=== PATIENT | male | born 1965 | race Caucasian/White ===

== ENCOUNTER 2016-11-20 21:43 | Emergency (ER) | payer MEDICAID, OTHER ==
[~2016-11-20] VITALS: Ht 177.8 cm; Wt 90.7 kg
[~2016-11-20 21:43] MED LIST: ATOR10TA PO; LISI10TA59 PO; METO25TA20 PO
[2016-11-20] MEDS ORDERED: ACETAMINOPHEN ES 500 MG TABLET ONE (23:03)
[2016-11-20] MEDS ORDERED: ACETAMINOPHEN 325 MG TABLET PO ONE (23:30)
[2016-11-21 00:05] VITALS: BP 123/70
== END 2016-11-21 00:07 | disposition home or self-care (01) ==
LOC: ER 21:48
DX: M23.91 Unspecified internal derangement of right knee (principal); F10.129 Alcohol abuse with intoxication, unspecified; F10.10 Alcohol abuse, uncomplicated; G20 Parkinson's disease; Z88.5 Allergy status to narcotic agent; I10 Essential (primary) hypertension; W19.XXXA Unspecified fall, initial encounter; Y92.89 Other specified places as the place of occurrence of the external cause; Y93.89 Activity, other specified; Y99.8 Other external cause status
CPT/HCPCS: 29505; 51702; 82962; 99283; A4606; Z7610

== ENCOUNTER 2021-02-26 22:09 | Emergency (ER) | payer OTHER ==
[~2021-02-26] VITALS: Ht 170.2 cm; Wt 79.4 kg
[~2021-02-26 22:09] MED LIST changes: +LISI10TA30 PO; -LISI10TA59 PO
--- NOTE | 2021-02-26 22:12 | NUR ---
PT BIBRA C/O CP WHILE WALKING. PER EMS, PT WAS GIVEN ASA 324MG. PT AAOX4 BREATHING EVENLY AND UNLABORED. PT ATTACHED TO MONITOR AND POX. SKIN IS WARM, DRY, AND INTACT. PT GIVEN BLANKET AND CALL LIGHT WITHIN REACH.
--- NOTE | 2021-02-26 22:36 | NUR ---
BLOOD OBTAINED AND SENT TO LAB
--- NOTE | 2021-02-26 22:40 | NUR ---
PT PLACED ON 2L O2 VIA NC FOR COMFORT
[2021-02-26 22:42] LABS: BASOPHILS % (AUTO) 0.7 % (0.0-2.0); EOSINOPHILS % (AUTO) 2.8 % (0.0-6.0); HEMATOCRIT 37 % (39-51); HEMOGLOBIN 12.2 g/dL (13.5-17.5); LYMPHOCYTES # (AUTO) 1.5 /CMM (0.8-4.8); LYMPHOCYTES % (AUTO) 23.4 % (20.0-44.0); MEAN CORPUSCULAR HGB CONC 33 g/dl (31.0-36.0); MEAN CORPUSCULAR VOLUME 97 fL (80-96); MONOCYTES # (AUTO) 0.7 /CMM (0.1-1.30); MONOCYTES % (AUTO) 11.2 % (2.0-12.0); NEUTROPHILS # (AUTO) 3.9 /CMM (1.8-8.9); NEUTROPHILS % (AUTO) 61.9 % (43.0-81.0); PLATELET COUNT (AUTO) 142 /CMM (150-450); RED BLOOD CELL COUNT(AUTO) 3.78 MIL/uL (4.5-6.0); WHITE BLOOD COUNT (AUTO) 6.4 K/uL (4.3-11.0)
--- NOTE | 2021-02-26 22:51 | NUR ---
COVID SWAB SENT TO LAB
[2021-02-26] MEDS ORDERED: ASPIRIN 325 MG TABLET PO ONE (23:00)
[2021-02-26 23:04] LABS: CALCIUM, SERUM 8.6 mg/dL (8.5-10.1); CARBON DIOXIDE 25 mmol/L (21-32); CHLORIDE 101 mmol/L (98-107); CREATININE 1.4 mg/dL (0.6-1.3); GLUCOSE 107 mg/dL (74-106); POTASSIUM 2.9 mmol/L (3.5-5.1); SODIUM SERUM 139 mmol/L (136-145); UREA NITROGEN, BLOOD 25 mg/dL (7-18)
[2021-02-26 23:16] LABS: ALANINE AMINOTRANSFERASE 19 U/L (12-78); ALBUMIN 3.8 g/dL (3.4-5.0); ALKALINE PHOSPHATASE 111 U/L (46-116); ASPARTATE AMINOTRANSFERASE 27 U/L (15-37); BILIRUBIN,DIRECT 0.2 mg/dL (0.0-0.2); BILIRUBIN,TOTAL 0.3 mg/dL (0.2-1.0); NT-PRO BNP 1360 pg/mL (0-125); TOTAL PROTEIN, SERUM 8.1 g/dL (6.4-8.2)
[2021-02-26] MEDS ORDERED: POTASSIUM CHLORIDE 20 MEQ TAB.PRT.SR PO ONE ×3 (23:30→23:37)
--- NOTE | 2021-02-27 03:15 | NUR ---
PT ACCEPTED TO [facility] BY DR HUTCHISON. ROOM 443B. # FOR REPORT [phone].
--- NOTE | 2021-02-27 03:50 | NUR ---
gave report to MARIANA Davila for torrie at [facility]
--- NOTE | 2021-02-27 04:38 | NUR ---
CALL FROM [facility]. NEW BED 620-B. # FOR REPORT [phone]
--- NOTE | 2021-02-27 04:45 | NUR ---
Gave report to MARIANA Cook for torrie at [facility]
[2021-02-27 05:47] VITALS: BP 130/94
--- NOTE | 2021-02-27 07:05 | NUR ---
gave report to MARIANA Flaherty for torrie
--- NOTE | 2021-02-27 07:53 | NUR ---
REPORT GIVEN TO EMT.
--- NOTE | 2021-02-27 08:03 | NUR ---
patient transferred to [facility] in stable condition. AA/OX4, DENIES ANY PAIN AT THIS TIME. DOCUMENTS AND IMAGES GIVEN TO SQUEAK RATTLE AND LEAK REPAIRER.
== END 2021-02-27 08:04 | disposition short-term general hospital (02) ==
LOC: ER 22:09 → ICU 02-27 00:41 → UNDOADMIN 02-27 00:41 → ER 02-27 08:04
DX: R07.9 Chest pain, unspecified (principal); F10.129 Alcohol abuse with intoxication, unspecified; Y90.8 Blood alcohol level of 240 mg/100 ml or more; I11.0 Hypertensive heart disease with heart failure; I50.9 Heart failure, unspecified; Z95.1 Presence of aortocoronary bypass graft; Z79.899 Other long term (current) drug therapy; R94.31 Abnormal electrocardiogram [ECG] [EKG]; Z20.822 Contact with and (suspected) exposure to COVID-19
CPT/HCPCS: 36415; 71045; 80048; 80076; 80320; 83880; 84484; 85025; 85730; 87081; 87426; 93005; 99285; C9803; G0480

== ENCOUNTER 2021-03-08 22:46 | Emergency (ER) | payer OTHER ==
[~2021-03-08] VITALS: Ht 170.2 cm; Wt 79.4 kg
--- NOTE | 2021-03-08 22:50 | NUR ---
BIBRA39 WALKING HOME HAD CP BUT ADMITS TO DRINKING HEAVILY TODAY AAOX4 ON ARRIVAL, DENIES ANY CP, GIVEN ASA 324 ON SCENE. DENIES ANY DISTRESS AT THIS TIME. IN ROOM AIR AND DENIES SOB. RESPIRATION REGULAR AND UNLABORED. ATTACHED TO THE MONITOR. WILL CONTINUE TO MONITOR THE PATIENT.
[2021-03-08 23:22] LABS: BASOPHILS # (AUTO) 0.1 /CMM (0.0-0.2); BASOPHILS % (AUTO) 1.2 % (0.0-2.0); EOSINOPHILS % (AUTO) 2.3 % (0.0-6.0); HEMATOCRIT 42 % (39-51); HEMOGLOBIN 13.8 g/dL (13.5-17.5); LYMPHOCYTES # (AUTO) 1.7 /CMM (0.8-4.8); LYMPHOCYTES % (AUTO) 29.5 % (20.0-44.0); MEAN CORPUSCULAR HGB CONC 33 g/dl (31.0-36.0); MEAN CORPUSCULAR VOLUME 99 fL (80-96); MONOCYTES # (AUTO) 0.4 /CMM (0.1-1.30); MONOCYTES % (AUTO) 6.3 % (2.0-12.0); NEUTROPHILS # (AUTO) 3.6 /CMM (1.8-8.9); NEUTROPHILS % (AUTO) 60.7 % (43.0-81.0); PLATELET COUNT (AUTO) 181 /CMM (150-450); RED BLOOD CELL COUNT(AUTO) 4.25 MIL/uL (4.5-6.0); WHITE BLOOD COUNT (AUTO) 5.9 K/uL (4.3-11.0)
[2021-03-08 23:58] LABS: CALCIUM, SERUM 8.6 mg/dL (8.5-10.1); CARBON DIOXIDE 26 mmol/L (21-32); CHLORIDE 104 mmol/L (98-107); CREATININE 1.1 mg/dL (0.6-1.3); GLUCOSE 93 mg/dL (74-106); SODIUM SERUM 140 mmol/L (136-145); UREA NITROGEN, BLOOD 18 mg/dL (7-18)
--- NOTE | 2021-03-09 05:20 | NUR ---
PT AWAKE. AAOX4. VITAL SIGNS STABLE. AMBULATORY WITH STEADY GAIT. NO ACUTE DISTRESS NOTED AT THIS TIME
[2021-03-09 05:33] VITALS: BP 142/85
--- NOTE | 2021-03-09 05:33 | NUR ---
Patient discharged to home in stable condition. Written and verbal after care instructions given. Patient verbalizes understanding of instruction. Pt ambulated out of ED. VSS.
== END 2021-03-09 05:34 | disposition home or self-care (01) ==
LOC: ER 22:48
DX: F10.129 Alcohol abuse with intoxication, unspecified (principal); R07.89 Other chest pain; I10 Essential (primary) hypertension; F17.200 Nicotine dependence, unspecified, uncomplicated; Z98.890 Other specified postprocedural states; Z88.5 Allergy status to narcotic agent; Z79.899 Other long term (current) drug therapy; Y90.6 Blood alcohol level of 120-199 mg/100 ml
CPT/HCPCS: 36415; 71045-TC; 80048-TC; 84484-TC; 85025-TC

== ENCOUNTER 2021-03-25 02:10 | Emergency (ER) | payer OTHER ==
[~2021-03-25] VITALS: Ht 170.2 cm; Wt 81.6 kg
--- NOTE | 2021-03-25 02:25 | NUR ---
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 pt aaox4 breathing evenly and unlabored. Pt was given 324mg of asa and one spray of nitro. pt attached to monitor and pox. skin warm,dry, and intact. pt does have sutures from an open heart surgery from "a few months ago". MD at bedside for eval. Pt given blanket and call lgiht within reach
[2021-03-25] MEDS: NITROGLYCERIN PACKET 1 GM PACKET TD ONE (02:30)
[2021-03-25] MEDS ORDERED: NITROGLYCERIN PACKET 1 GM PACKET ONE (02:30)
[2021-03-25] MEDS: IV NS 0.9% 500 ML BAG IV ONE (02:43)
--- NOTE | 2021-03-25 02:43 | NUR ---
verbal order for 500ml ns. end time [id number]
[2021-03-25 02:56] LABS: BASOPHILS # (AUTO) 0.1 K/uL (0.0-0.2); BASOPHILS % (AUTO) 1.5 % (0.0-2.0); EOSINOPHILS % (AUTO) 1.7 % (0.0-6.0); HEMATOCRIT 46 % (39-51); HEMOGLOBIN 14.9 g/dL (13.5-17.5); LYMPHOCYTES # (AUTO) 1.5 K/uL (0.8-4.8); LYMPHOCYTES % (AUTO) 25.3 % (20.0-44.0); MEAN CORPUSCULAR HGB CONC 33 g/dl (31.0-36.0); MEAN CORPUSCULAR VOLUME 100 fL (80-96); MONOCYTES # (AUTO) 0.4 K/uL (0.1-1.30); MONOCYTES % (AUTO) 6.9 % (2.0-12.0); NEUTROPHILS # (AUTO) 3.8 K/uL (1.8-8.9); NEUTROPHILS % (AUTO) 64.6 % (43.0-81.0); PLATELET COUNT (AUTO) 223 K/uL (150-450); RED BLOOD CELL COUNT(AUTO) 4.56 MIL/uL (4.5-6.0); WHITE BLOOD COUNT (AUTO) 5.8 K/uL (4.3-11.0)
[2021-03-25 03:19] LABS: ALANINE AMINOTRANSFERASE 22 U/L (12-78); ALBUMIN 3.8 g/dL (3.4-5.0); ALKALINE PHOSPHATASE 144 U/L (46-116); ASPARTATE AMINOTRANSFERASE 30 U/L (15-37); BILIRUBIN,DIRECT 0.1 mg/dL (0.0-0.2); BILIRUBIN,TOTAL 0.4 mg/dL (0.2-1.0); CALCIUM, SERUM 8.3 mg/dL (8.5-10.1); CARBON DIOXIDE 25 mmol/L (21-32); CREATININE 1.4 mg/dL (0.6-1.3); GLUCOSE 109 mg/dL (74-106); UREA NITROGEN, BLOOD 18 mg/dL (7-18)
[2021-03-25] MEDS: HYDROMORPHONE 1 MG/1 ML DISP.SYRIN IV ONE (03:21)
--- NOTE | 2021-03-25 03:21 | NUR ---
per md verbal order 0.5mg dialudid iv
[2021-03-25] MEDS ORDERED: HYDROMORPHONE 1 MG/1 ML DISP.SYRIN ONE (03:22)
[2021-03-25 03:30] LABS: SODIUM SERUM 137 mmol/L (136-145)
[2021-03-25 03:31] LABS: CHLORIDE 99 mmol/L (98-107); POTASSIUM 3.4 mmol/L (3.5-5.1)
--- NOTE | 2021-03-25 04:00 | NUR ---
pt placed on 2L O2 via nc for comfort
[2021-03-25] MEDS ORDERED: IOHEXOL-350 100 ML VIAL IV ONE (04:11)
[2021-03-25] MEDS ORDERED: IV NS 0.9% 250 ML IV ONE (04:11)
[2021-03-25 04:14] LABS: MAGNESIUM 2.5 mg/dL (1.8-2.4)
--- NOTE | 2021-03-25 04:23 | NUR ---
taken to ct
--- NOTE | 2021-03-25 04:30 | NUR ---
FACESHEET [facility] CLINICALS FAXED TO [facility].
--- NOTE | 2021-03-25 06:06 | NUR ---
PER NASIR [facility]O NURSING FACULTY , PT GOT ACCEPTED AT [facility]. AWAITING FOR BED
--- NOTE | 2021-03-25 06:39 | NUR ---
DR FRANCOIS FROM [facility] ON THE PHONE WITH DR STONE
--- NOTE | 2021-03-25 07:10 | NUR ---
GAVE REPORT TO MARIANA REYES FOR ANJUM
--- NOTE | 2021-03-25 08:55 | NUR ---
KEPT PATIENT NPO AT THIS TIME. PATIENT A/OX4, BREATHING EVEN AND UNLABORED, NO SOB NOTED, RESTING IN BED. ADMISSIONS WILL FOLLOW UP WITH CM RE: BED ASSIGNMENT
--- NOTE | 2021-03-25 09:05 | NUR ---
SPOKE TO [facility] [phone] FOR UPDATE REGARDING TRANSFER. STILL WAITING FOR AVAILABLE BED.
--- NOTE | 2021-03-25 09:38 | NUR ---
[facility] BED [phone] FOR REPORT WAITING FOR TRANSPORT INFORMATION. Addendum: 03/25/21 at [address] [facility] [phone] FOR REPORT WAITING FOR TRANSPORT INFORMATION
--- NOTE | 2021-03-25 10:02 | NUR ---
REPORT GIVEN TO LEEANN PEÑA AT [facility]
--- NOTE | 2021-03-25 10:10 | NUR ---
RECEIVED A CALL FROM [facility] AND GAVE US AMBULANCE INFORMATION. [facility] WILL BE HERE FOR PATIENT AT 1300.
[2021-03-25 11:05] VITALS: BP 146/86
--- NOTE | 2021-03-25 13:22 | NUR ---
REPORT GIVEN TO CORPORATE SERVICES MANAGER, IMAGES AND PAPERWORKS HANDED TO THE CREW. PATIENT A/OX4, IN STABLE CONDITION. NO DISTRESS NOTED. VSS. PATIENT WILL BE TRANSFERRED TO [facility].
== END 2021-03-25 13:23 | disposition short-term general hospital (02) ==
LOC: ER 02:12
DX: R07.9 Chest pain, unspecified (principal); Z95.1 Presence of aortocoronary bypass graft; G20 Parkinson's disease; R79.1 Abnormal coagulation profile; F17.210 Nicotine dependence, cigarettes, uncomplicated; R94.31 Abnormal electrocardiogram [ECG] [EKG]; F10.129 Alcohol abuse with intoxication, unspecified; Y90.8 Blood alcohol level of 240 mg/100 ml or more; I11.9 Hypertensive heart disease without heart failure; Z96.698 Presence of other orthopedic joint implants; Z79.899 Other long term (current) drug therapy
CPT/HCPCS: 36415; 71045; 71275; 80048; 80061; 80076; 80320; 83735; 83880; 84484; 85025; 85378; 87426; 93005 ×2; 96374; 99291; 99406; C9803; J1170; J7040; J7050; Q9967; G0480

== ENCOUNTER 2021-07-28 13:17 | Emergency (ER) | payer OTHER ==
[~2021-07-28] VITALS: Ht 172.7 cm; Wt 86.2 kg
--- NOTE | 2021-07-28 13:27 | NUR ---
TO ER BED 7, BIBSELF C/O CHEST PAIN STARTED 3 HOURS AGO, PAIN IS LIKE A TINGLING SENSATION, AAOX3, BREATHING EVEN AND NON LABORED, CONNECTED TO MONITOR
[2021-07-28 13:49] LABS: BASOPHILS # (AUTO) 0.1 K/uL (0.0-0.2); BASOPHILS % (AUTO) 0.6 % (0.0-2.0); EOSINOPHILS % (AUTO) 0.3 % (0.0-6.0); HEMATOCRIT 52 % (39-51); HEMOGLOBIN 17.2 g/dL (13.5-17.5); LYMPHOCYTES # (AUTO) 0.8 K/uL (0.8-4.8); LYMPHOCYTES % (AUTO) 7.4 % (20.0-44.0); MEAN CORPUSCULAR HGB CONC 33 g/dl (31.0-36.0); MEAN CORPUSCULAR VOLUME 98 fL (80-96); MONOCYTES # (AUTO) 0.9 K/uL (0.1-1.30); MONOCYTES % (AUTO) 8.2 % (2.0-12.0); NEUTROPHILS # (AUTO) 9.5 K/uL (1.8-8.9); NEUTROPHILS % (AUTO) 83.5 % (43.0-81.0); PLATELET COUNT (AUTO) 165 K/uL (150-450); RED BLOOD CELL COUNT(AUTO) 5.35 MIL/uL (4.5-6.0); WHITE BLOOD COUNT (AUTO) 11.3 K/uL (4.3-11.0)
[2021-07-28] MEDS: ASPIRIN 325 MG TABLET PO ONE (14:30)
[2021-07-28 14:34] LABS: CALCIUM, SERUM 8.5 mg/dL (8.5-10.1); CREATININE 1.5 mg/dL (0.6-1.3); POTASSIUM 3.2 mmol/L (3.5-5.1)
[2021-07-28] MEDS ORDERED: ASPIRIN 325 MG TABLET ONE (14:35)
[2021-07-28] MEDS ORDERED: LOSA100T31 PO (14:45)
[2021-07-28] MEDS ORDERED: LISI10TA29 PO (14:45)
[2021-07-28] MEDS ORDERED: ASPI-1420 PO (14:45)
[2021-07-28] MEDS ORDERED: PANT40TA49 PO (14:45)
--- NOTE | 2021-07-28 15:19 | NUR ---
COVID ANTIGEN SWAB DONE AND SENT TO LAB
--- NOTE | 2021-07-28 18:11 | NUR ---
lab at bedside
--- NOTE | 2021-07-28 18:23 | NUR ---
[facility] [phone], CALL FOR TROPONIN RESULT
--- NOTE | 2021-07-28 18:54 | NUR ---
SPOKE TO GREER AND GAVE TROPONIN LEVELS, SHE WILL CALL [facility]
--- NOTE | 2021-07-28 19:44 | NUR ---
pt does not want to be transffered to on [facility] of [facility]. he wants to go to [facility], called Lida. she will call back.
[2021-07-28 19:50] VITALS: BP 160/69
--- NOTE | 2021-07-28 20:23 | NUR ---
Patient does not wish to proceed with medical care recommended by Dr. LEAL. Patient given information related to possible complications, up to and including , which could occur as a result of leaving the hospital at this time. Patient verbalizes understanding of risks involved due to leaving against medical advice. Patient has signed AMA form.
== END 2021-07-28 20:28 | disposition left against medical advice (07) ==
LOC: ER 13:20
DX: R07.89 Other chest pain (principal); Z95.1 Presence of aortocoronary bypass graft; G20 Parkinson's disease; I11.9 Hypertensive heart disease without heart failure; I25.10 Atherosclerotic heart disease of native coronary artery without angina pectoris; F17.200 Nicotine dependence, unspecified, uncomplicated; Z79.899 Other long term (current) drug therapy; Z79.82 Long term (current) use of aspirin; Z20.822 Contact with and (suspected) exposure to COVID-19; Z53.29 Procedure and treatment not carried out because of patient's decision for other reasons
CPT/HCPCS: 36415; 71045; 80048; 84484 ×2; 85025; 87081; 87426; 93005; 99291; C9803

== ENCOUNTER 2021-08-22 10:13 | Emergency (ER) | payer OTHER ==
[~2021-08-22] VITALS: Ht 172.7 cm; Wt 92.8 kg
[~2021-08-22 10:13] MED LIST changes: +ASPI-1420 PO; -ATOR10TA PO; +LISI10TA29 PO; -LISI10TA30 PO; +LOSA100T31 PO; -METO25TA20 PO; +PANT40TA49 PO
--- NOTE | 2021-08-22 10:36 | NUR ---
BIBRA 102 FOR WITNESSED SEIZURE 30 SEC. NO HX OF SEIZURE. PATIENT IS ALERT AND ORIENTED. BREATHING EVEN AND UNLABORED. SEIZURE PRECAUTIONS INITIATED.NO C/O PAIN OR DISCOMFORT.WILL CONTINUE TO MONITOR.
--- NOTE | 2021-08-22 11:15 | NUR ---
BLOOD COLLECTED AND SENT TO LAB
[2021-08-22 11:29] LABS: MEAN CORPUSCULAR VOLUME 99 fL (80-96)
[2021-08-22] MEDS ORDERED: LEVETIRACETAM (500MG) 1,000 MG in IV NS 0.9% 100 ML IV SCH (11:30)
--- NOTE | 2021-08-22 11:31 | NUR ---
MOVE SHEET SUBMITTED AND CALLED FOR TELE BED.
[2021-08-22 11:32] LABS: BASOPHILS # (AUTO) 0.1 K/uL (0.0-0.2); EOSINOPHILS % (AUTO) 1.1 % (0.0-6.0); HEMATOCRIT 50 % (39-51); HEMOGLOBIN 16.4 g/dL (13.5-17.5); LYMPHOCYTES # (AUTO) 1.6 K/uL (0.8-4.8); LYMPHOCYTES % (AUTO) 13.1 % (20.0-44.0); MEAN CORPUSCULAR HGB CONC 33 g/dl (31.0-36.0); MONOCYTES # (AUTO) 0.7 K/uL (0.1-1.30); NEUTROPHILS # (AUTO) 9.7 K/uL (1.8-8.9); NEUTROPHILS % (AUTO) 78.8 % (43.0-81.0); PLATELET COUNT (AUTO) 224 K/uL (150-450); RED BLOOD CELL COUNT(AUTO) 5.01 MIL/uL (4.5-6.0); WHITE BLOOD COUNT (AUTO) 12.3 K/uL (4.3-11.0)
[2021-08-22 11:36] LABS: CALCIUM, SERUM 8.9 mg/dL (8.5-10.1); CARBON DIOXIDE 19 mmol/L (21-32); CHLORIDE 101 mmol/L (98-107); CREATININE 1.5 mg/dL (0.6-1.3); GLUCOSE 167 mg/dL (74-106); POTASSIUM 3.4 mmol/L (3.5-5.1); SODIUM SERUM 140 mmol/L (136-145); UREA NITROGEN, BLOOD 16 mg/dL (7-18)
[2021-08-22 11:42] LABS: ALANINE AMINOTRANSFERASE 25 U/L (12-78); ALBUMIN 3.9 g/dL (3.4-5.0); ALKALINE PHOSPHATASE 85 U/L (46-116); ASPARTATE AMINOTRANSFERASE 26 U/L (15-37); BILIRUBIN,DIRECT 0.2 mg/dL (0.0-0.2); BILIRUBIN,TOTAL 0.5 mg/dL (0.2-1.0); TOTAL PROTEIN, SERUM 7.9 g/dL (6.4-8.2)
--- NOTE | 2021-08-22 11:48 | NUR ---
THE PATIENT IS TAKEN TO CT
--- NOTE | 2021-08-22 12:05 | NUR ---
FELIX FROM [facility] TO [phone]
--- NOTE | 2021-08-22 12:13 | NUR ---
SPOKE WITH [facility] [employer]IRRING MACHINE OPERATOR FELIX WHO STATED THAT THE PATIENT WILL BE TRANSFERED TO [facility]. THE AUTOMATIC SHIRRING MACHINE OPERATOR WILL CALL BACK LATER TO GIVEN MORE INFORMATION. FELIX [phone]
--- NOTE | 2021-08-22 12:21 | NUR ---
THE PATIENT IS RESTING COMFORTABLY. THE PATIENT IS ALERT AND ORIENTED X3. DENIES PAIN. IN ROOM AIR AND DENIES SOB. RESPIRATION REGULAR AND UNLABORED. REMAINS ATTACHED TO THE MONITOR. WARM BLANKET ON. WILL CONTINUE TO MONITOR THE PATIENT.
--- NOTE | 2021-08-22 12:34 | NUR ---
COVID SWAB DONE AND SENT TO THE LAB
--- NOTE | 2021-08-22 12:39 | NUR ---
BLOOD PRESSURE IS 194/144. DR ELIZONDO MADE AWARE.
--- NOTE | 2021-08-22 12:44 | NUR ---
PT ACCEPTED TO [facility] UNDER DR. DEJESUS WILL CALL WITH BED.
[2021-08-22] MEDS ORDERED: LISINOPRIL (10MG) 10 MG TABLET PO STA (12:45)
[2021-08-22] MEDS ORDERED: Magnesium 1GM/D5W 100ML PREMIX 100 ML IV ONE (12:54)
[2021-08-22] MEDS ORDERED: LOSARTAN POTASSIUM 25 MG TABLET ONE (12:54)
[2021-08-22] MEDS ORDERED: Magnesium 1GM/D5W 100ML PREMIX 100 ML IV SCH (13:00)
[2021-08-22] MEDS ORDERED: LOSARTAN POTASSIUM 25 MG TABLET PO ONE (13:00)
--- NOTE | 2021-08-22 14:16 | NUR ---
FAXED COVID RESULT TO [phone]
--- NOTE | 2021-08-22 17:06 | NUR ---
[facility] BED#10. NUMBER TO GIVE REPORT WILL ARRANGE TRANSPORT WITH CALL THE CAR
--- NOTE | 2021-08-22 17:19 | NUR ---
REPORT GIVEN TO LACY PEÑA FOR ANJUM
--- NOTE | 2021-08-22 20:09 | NUR ---
SPOKE TO DESTINY MACEDO CM WHO PROVIDED ME W/ CALL THE CAR RESERVATION NUMBER: [id number]. ON HOLD WITH CALL THE CAR TRANSPORTATION FOR UPDATE
--- NOTE | 2021-08-22 20:36 | NUR ---
AUTH # FOR TRANSPORTATION PER FELIX MACEDO CM: [id number]
--- NOTE | 2021-08-22 20:42 | NUR ---
[facility]IED [facility] AND [facility]. NO [facility] AVAILABLE
--- NOTE | 2021-08-22 20:44 | NUR ---
[facility], NO ALS AVAILABLE
--- NOTE | 2021-08-22 20:59 | NUR ---
[facility] ETA: 230
--- NOTE | 2021-08-22 23:02 | NUR ---
REPORT GIVEN TO EMS AT BEDSIDE
[2021-08-22 23:16] VITALS: BP 151/90
== END 2021-08-22 23:17 ==
LOC: ER 10:16
DX: R55 Syncope and collapse (principal); R00.0 Tachycardia, unspecified; R94.31 Abnormal electrocardiogram [ECG] [EKG]; S09.90XA Unspecified injury of head, initial encounter; W18.39XA Other fall on same level, initial encounter; Y93.01 Activity, walking, marching and hiking; Y92.830 Public park as the place of occurrence of the external cause; R73.9 Hyperglycemia, unspecified; Z20.822 Contact with and (suspected) exposure to COVID-19; I25.10 Atherosclerotic heart disease of native coronary artery without angina pectoris; Z95.1 Presence of aortocoronary bypass graft; G20 Parkinson's disease; Z59.01 Sheltered homelessness; F10.10 Alcohol abuse, uncomplicated; Z79.82 Long term (current) use of aspirin; Z79.899 Other long term (current) drug therapy; I10 Essential (primary) hypertension
CPT/HCPCS: 36415; 70450; 71045; 80048; 80076; 82962; 84484; 85025; 85730; 87426; 93005; 96365; 96367; 99285; C9803; J1953; J3475; J7030

== ENCOUNTER 2021-08-25 18:52 | Emergency (ER) | payer OTHER ==
[~2021-08-25] VITALS: Ht 172.7 cm; Wt 92.5 kg
--- NOTE | 2021-08-25 19:26 | NUR ---
RAD AT BEDSIDE
--- NOTE | 2021-08-25 19:30 | NUR ---
PT C/O CHEST PAIN WHILE WALKING IN THE [place]ARK AT 1630. PT STATED THAT THE PAIN IS A 7/10 AND DOES NOT RADIATE ANYWHERE. PT DENIES NAUSEA AND VOMITTING. DR RODRIGEZ AT BEDSIDE.
[2021-08-25 19:31] LABS: BASOPHILS % (AUTO) 0.5 % (0.0-2.0); EOSINOPHILS % (AUTO) 1.3 % (0.0-6.0); HEMATOCRIT 44 % (39-51); HEMOGLOBIN 14.5 g/dL (13.5-17.5); LYMPHOCYTES # (AUTO) 0.9 K/uL (0.8-4.8); LYMPHOCYTES % (AUTO) 10.2 % (20.0-44.0); MEAN CORPUSCULAR HGB CONC 33 g/dl (31.0-36.0); MEAN CORPUSCULAR VOLUME 100 fL (80-96); MONOCYTES # (AUTO) 0.7 K/uL (0.1-1.30); NEUTROPHILS # (AUTO) 6.9 K/uL (1.8-8.9); PLATELET COUNT (AUTO) 143 K/uL (150-450); RED BLOOD CELL COUNT(AUTO) 4.41 MIL/uL (4.5-6.0); WHITE BLOOD COUNT (AUTO) 8.6 K/uL (4.3-11.0)
--- NOTE | 2021-08-25 19:31 | NUR ---
LABS WERE COLLECTED AND SENT
--- NOTE | 2021-08-25 19:40 | NUR ---
URINE COLLECTED AND SENT TO LAB
[2021-08-25 20:07] LABS: CREATININE 1.4 mg/dL (0.6-1.3)
[2021-08-25 20:13] LABS: ALBUMIN 3.5 g/dL (3.4-5.0); BILIRUBIN,TOTAL 0.2 mg/dL (0.2-1.0); TOTAL PROTEIN, SERUM 7.7 g/dL (6.4-8.2)
--- NOTE | 2021-08-25 23:27 | NUR ---
Patient discharged to home in stable condition. Written and verbal after care instructions given. Patient verbalizes understanding of instruction.
[2021-08-25 23:41] VITALS: BP 129/75
== END 2021-08-25 23:42 | disposition home or self-care (01) ==
LOC: ER 18:55
DX: F10.129 Alcohol abuse with intoxication, unspecified (principal); R07.89 Other chest pain; G20 Parkinson's disease; I10 Essential (primary) hypertension; I25.10 Atherosclerotic heart disease of native coronary artery without angina pectoris; E78.5 Hyperlipidemia, unspecified; F41.9 Anxiety disorder, unspecified; F17.200 Nicotine dependence, unspecified, uncomplicated; Z98.890 Other specified postprocedural states; Z88.5 Allergy status to narcotic agent; Z79.899 Other long term (current) drug therapy; Z79.82 Long term (current) use of aspirin; Y90.7 Blood alcohol level of 200-239 mg/100 ml
CPT/HCPCS: 36415; 71045-TC; 80053-TC; 84484-TC; 85025-TC; G0480

== ENCOUNTER 2021-08-28 01:33 | Emergency (ER) | payer OTHER ==
[~2021-08-28] VITALS: Ht 167.6 cm; Wt 93.0 kg
--- NOTE | 2021-08-28 01:42 | NUR ---
PT BIBRA C/O ALCOHOL INTOXICATION AND BEING FOUND ON THE FLOOR. PT AAOX4 BREATHING EVENLY AND UNLABORED. MD AT BEDSIDE. PT ATTACHED TO MONITOR AND POX. UPON ASSESSMENT,PT HAS ABRASION ON UPPER LIP AND DRIED BLOOD IN NOSE. PT GIVEN BLANKET AND CALL LIGHT WITHIN REACH
--- NOTE | 2021-08-28 01:55 | NUR ---
LAB AT BEDSIDE
[2021-08-28] MEDS ORDERED: TDAP [DIPH/PERTUSSIS/TET] 0.5 ML VIAL IM ONE ×2 (02:00→02:02)
--- NOTE | 2021-08-28 02:09 | NUR ---
TAKEN TO RADIOLOGY
[2021-08-28 02:11] LABS: BASOPHILS # (AUTO) 0.1 K/uL (0.0-0.2); BASOPHILS % (AUTO) 1.3 % (0.0-2.0); EOSINOPHILS % (AUTO) 4.3 % (0.0-6.0); HEMATOCRIT 45 % (39-51); HEMOGLOBIN 15.1 g/dL (13.5-17.5); LYMPHOCYTES # (AUTO) 1.5 K/uL (0.8-4.8); LYMPHOCYTES % (AUTO) 22.8 % (20.0-44.0); MEAN CORPUSCULAR HGB CONC 34 g/dl (31.0-36.0); MEAN CORPUSCULAR VOLUME 99 fL (80-96); MONOCYTES # (AUTO) 0.5 K/uL (0.1-1.30); MONOCYTES % (AUTO) 7.8 % (2.0-12.0); NEUTROPHILS # (AUTO) 4.3 K/uL (1.8-8.9); NEUTROPHILS % (AUTO) 63.8 % (43.0-81.0); PLATELET COUNT (AUTO) 157 K/uL (150-450); WHITE BLOOD COUNT (AUTO) 6.7 K/uL (4.3-11.0)
[2021-08-28 02:31] LABS: ALBUMIN 3.7 g/dL (3.4-5.0); BILIRUBIN,DIRECT 0.1 mg/dL (0.0-0.2); BILIRUBIN,TOTAL 0.2 mg/dL (0.2-1.0); CALCIUM, SERUM 8.8 mg/dL (8.5-10.1); CREATININE 1.1 mg/dL (0.6-1.3); POTASSIUM 3.9 mmol/L (3.5-5.1)
--- NOTE | 2021-08-28 03:22 | NUR ---
PT SLEEPING, ATTACHED TO MONITOR AND POX.
--- NOTE | 2021-08-28 04:12 | NUR ---
Patient discharged to home in stable condition. Written and verbal after care instructions given. Patient verbalizes understanding of instruction. pt ambulatory with a steady gait
[2021-08-28 05:16] VITALS: BP 142/80
== END 2021-08-28 04:12 | disposition home or self-care (01) ==
LOC: ER 01:33
DX: S00.83XA Contusion of other part of head, initial encounter (principal); S00.511A Abrasion of lip, initial encounter; F10.10 Alcohol abuse, uncomplicated; I10 Essential (primary) hypertension; I25.10 Atherosclerotic heart disease of native coronary artery without angina pectoris; F17.200 Nicotine dependence, unspecified, uncomplicated; Z98.890 Other specified postprocedural states; Z88.5 Allergy status to narcotic agent; Z60.2 Problems related to living alone; Z79.899 Other long term (current) drug therapy; Z79.82 Long term (current) use of aspirin; W19.XXXA Unspecified fall, initial encounter; Y93.89 Activity, other specified; Y92.89 Other specified places as the place of occurrence of the external cause; Y99.8 Other external cause status; Y90.9 Presence of alcohol in blood, level not specified
CPT/HCPCS: 36415; 70450-TC; 70486-TC; 71045-TC; 72125-TC; 80048-TC; 80076-TC; 82962-TC; 84484-TC; 85025-TC; 85730-TC; 90715